=== PATIENT | female | born 1980 | race Caucasian/White ===

== ENCOUNTER 2024-07-04 11:18 | Outpatient (AMB) | payer OTHER, SELFPAY ==
[2024-07-04 11:25] VITALS: BP 185/95; PULSE 80; RESP 16; O2SAT 97
--- NOTE | 2024-07-04 11:25 | A.OFFVIS_ITS ---
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 She also reports severe pain in the left hip the projection of the left iliac crest. She reports that standing and walking aggravate her pain the most. Flexing forward aggravates her pain more than flexing backwards. Bending twisting and side flexing aggravates her pain as well. She can not sleep normally because of her pain she can not do activities of daily living, she can take care of herself and her daughter she is a single mother, she can not function normally. She is on permanent disability for migraine and lower back pain. She reports that she had no migraine attacks for 6 months. Cold and weather changes aggravate her pain and heat applications make her pain better. In terms of tissue damage he reports her pain as stabbing, lancinating, sharp, cutting, lacerating, pinching, cramping, crushing, tingling, stinging, punishing, killing, spreading, radiating, piercing, tight, squeezing, tearing sensation. She attempted physical therapy and reported so severe pain on physical therapy that she could not continue physical therapy. She had MRI at [facility] of the lumbar spine and this is not available for me. She never had any injections. Her past medical history significant for history of gout and history of kidney stones she is suffering from hypertension in the past she had headaches. Past surgical history significant for history of history of hernia repair bilateral as a child, history of D and C and history of at 14 and 16 years old. She denies drinking alcohol, admits smoking 1/2 a pack of cigarettes for 20 years she drinks caffeinated beverages and she denies recreational drugs Review of Systems Const All systems reviewed & are unremarkable except as noted in HPI and below ENT Reports Normal hearing present Neuro Reports Normal hearing present, Denies Abnormal speech present, Denies confusion and Denies Sensory deficit (Neuro) Psych Denies confusion Physical Exam Vital Signs: Last Vital Signs Pulse 80 07/04/24 11:25 Resp 16 07/04/24 11:25 BP 185/95 H 07/04/24 11:25 Pulse Ox 97 07/04/24 11:25 Oxygen Delivery Method Room Air 07/04/24 11:25 Const General: no acute distress; No confusion Nutritional Appearance: obese morbidly obese Orientation/consciousness: patient oriented x3 and No confusion Eyes General: appearance normal, both eyes and all related structures Pupils: Equal, round and reactive pupils present EOM: EOMs intact bilaterally Neck Neck: Yes full ROM Chest Chest palpation & inspection: normal inspection of the chest Resp Effort & Inspection: normal respiratory effort, able to speak in complete sentences, normal respiratory pattern, no audible wheezes and no cough Cardio Jugular venous distension: no JVD GI Inspection: Yes normal to inspection Back/Spine/Pelvis Other: Rajinder test is positive on the left performance of the Rajinder test on the right causes some pain on the left as well. Very difficult to perform pelvic compression test due to severe tenderness on palpation in projection of the 3 cm below the iliac crest where the patient has a nodule under the skin which is mobile. I took patient under the ultrasound machine and examined the nodule it appears to be approximately 3 by 1 cm formation. Tenderness on palpation in projection of the paraspinal spinal region lumbar spine. Flexing forward aggravates pain more than flexing backwards. Neuro General: patient oriented x3, gait normal and No confusion Cranial nerves: Yes CN's II-XII intact bilaterally, Yes Equal, round and reactive pupils present, Yes Normal hearing present and Yes Ability to bilaterally elevate shoulders present Speech: No Abnormal speech present Gait exam (Neuro): Normal gait present Motor exam (neuro): 5/5 motor strength present throughout Sensory Exam: No Sensory deficit (Neuro) Extrem General: No pedal edema Psych Speech and movement: Normal speech and movement present Affect: normal affect Attitude: cooperative Thought process: Normal thought process present Thought content: Normal thought content present Insight: Good insight present (Psych) Judgement: Good judgement present (Psych) Assessment & Plan Assessment & Plan (1) Neuroma: Code(s): D36.10 - Benign neoplasm of peripheral nerves and autonomic nervous system, unspecified Category: Medical (2) Sacroiliitis: Code(s): M46.1 - Sacroiliitis, not elsewhere classified Category: Medical (3) Chronic left SI joint pain: Code(s): M53.3 - Sacrococcygeal disorders, not elsewhere classified; G89.29 - Other chron ic pain Category: Medical (4) Chronic pain syndrome: Code(s): G89.4 - Chronic pain syndrome Category: Medical Plan We agreed today that I will schedule her for diagnostic left sacroiliac joint injection to possibly verify my suspicion that her lower back pain is coming from the sacroiliac joint. I also would like to discuss this case with 1 of my surgical colleagues and request them if possible to perform excisional biopsy of the the subcutaneous neuroma. Whether or not it will alleviate pain of the patient in the projection of the iliac crest I can not say but at least a biopsy could be performed. If diagnostic left sacroiliac joint injection will be helpful to control the pain of this patient is several approaches to treat this pain could be performed including sacroiliac joint steroid injections, sacroiliac joint innervation stimulation, as well as sacroiliac joint stabilization with fusion. To improve the pain of this patient, to improve her night's sleep I will start her on tizanidine 2 mg t.i.d. the regimen was explained to the patient as well as risks and benefits of the medication. Medications: New tizanidine 2 mg PO TID 30 days PRN 90 tabs 8RF muscle spasticity Patient Instructions: I here by testify that I spent 45 minutes in conversation with this patient as well as planning her care and organizing this note. Coding Level of Care Code New Pt Level 4 (06920) Diagnoses Neuroma D36.10 Sacroiliitis M46.1 Chronic left SI joint pain M53.3; G89.29 Chronic pain syndrome G89.4
== END 2024-07-04 12:10 | disposition home or self-care (01) ==
LOC: HO.PMC 11:19
PROVIDERS: PCP Nurse Practitioner Family; Visit Provider Anesthesiology
DX: D36.10 Benign neoplasm of peripheral nerves and autonomic nervous system, unspecified (principal); M46.1 Sacroiliitis, not elsewhere classified; M53.3 Sacrococcygeal disorders, not elsewhere classified; G89.29 Other chronic pain; G89.4 Chronic pain syndrome
CPT/HCPCS: 99204

== ENCOUNTER → 2024-07-04 11:18 | Outpatient (BNVA) | payer OTHER, SELFPAY | PROVIDERS: PCP Nurse Practitioner Family; Visit Provider Anesthesiology | DX: D36.10 Benign neoplasm of peripheral nerves and autonomic nervous system, unspecified (principal); M46.1 Sacroiliitis, not elsewhere classified; M53.3 Sacrococcygeal disorders, not elsewhere classified; G89.29 Other chronic pain | CPT/HCPCS: 99202 ==

== ENCOUNTER 2024-12-26 14:16 | Outpatient (AMB) | payer OTHER, SELFPAY ==
[2024-12-26 14:32] VITALS: BP 179/97; PULSE 100; RESP 20; O2SAT 100
--- NOTE | 2024-12-26 14:32 | MHC.OFFVIS ---
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 Unfortunately something slept through the cracks and the patient was not scheduled for diagnostic sacroiliac joint injection. She also was not referred to a surgeon as I was promised her to do perform excisional biopsy of the presumable Nevroma. I will do it today. Prior: severe pain in her back with radiation of the pain into bilateral lower extremities on the posterior surface of the both lower extremities to the level of mid lower legs and not below that level. She also reports severe pain in the left hip the projection of the left iliac crest. She reports that standing and walking aggravate her pain the most. Flexing forward aggravates her pain more than flexing backwards. Bending twisting and side flexing aggravates her pain as well. She attempted physical therapy and reported so severe pain on physical therapy that she could not continue physical therapy. She is trying to stay active she performs exercises home. She had MRI at [facility] of the lumbar spine and this is not available for me. She never had any injections. Her past medical history significant for history of gout and history of kidney stones she is suffering from hypertension in the past she had headaches. Past surgical history significant for history of history of hernia repair bilateral as a child, history of D and C and history of at 14 and 16 years old. She denies drinking alcohol, admits smoking 1/2 a pack of cigarettes for 20 years she drinks caffeinated beverages and she denies recreational drugs Review of Systems Const All systems reviewed & are unremarkable except as noted in HPI and below ENT Reports Normal hearing present Neuro Reports Normal hearing present, Denies Abnormal speech present, Denies confusion and Denies Sensory deficit (Neuro) Psych Denies confusion Physical Exam Vital Signs: Last Vital Signs Pulse 100 12/26/24 14:32 Resp 20 12/26/24 14:32 BP 179/97 H 12/26/24 14:32 Pulse Ox 100 12/26/24 14:32 Oxygen Delivery Method Room Air 12/26/24 14:32 Const General: no acute distress; No confusion Nutritional Appearance: obese morbidly obese Orientation/consciousness: patient oriented x3 and No confusion Eyes General: appearance normal, both eyes and all related structures Pupils: Equal, round and reactive pupils present EOM: EOMs intact bilaterally Neck Neck: Yes full ROM Chest Chest palpation & inspection: normal inspection of the chest Resp Effort & Inspection: normal respiratory effort, able to speak in complete sentences, normal respiratory pattern, no audible wheezes and no cough Cardio Jugular venous distension: no JVD GI Inspection: Yes normal to inspection Back/Spine/Pelvis Other: Rajinder test is positive on the left performance of the Rajinder test on the right causes some pain on the left as well. Very difficult to perform pelvic compression test due to severe tenderness on palpation in projection of the 3 cm below the iliac crest where the patient has a nodule under the skin which is mobile. I took patient under the ultrasound machine and examined the nodule it appears to be approximately 3 by 1 cm formation. Tenderness on palpation in projection of the paraspinal spinal region lumbar spine. Flexing forward aggravates pain more than flexing backwards. Neuro General: patient oriented x3, gait normal and No confusion Cranial nerves: Yes CN's II-XII intact bilaterally, Yes Equal, round and reactive pupils present, Yes Normal hearing present and Yes Ability to bilaterally elevate shoulders present Speech: No Abnormal speech present Gait exam (Neuro): Normal gait present Motor exam (neuro): 5/5 motor strength present throughout Sensory Exam: No Sensory deficit (Neuro) Extrem General: No pedal edema Psych Speech and movement: Normal speech and movement present Affect: normal affect Attitude: cooperative Thought process: Normal thought process present Thought content: Normal thought content present Insight: Good insight present (Psych) Judgement: Good judgement present (Psych) Assessment & Plan Assessment & Plan (1) Neuroma: Code(s): D36.10 - Benign neoplasm of peripheral nerves and autonomic nervous system, unspecified Category: Medical (2) Sacroiliitis: Code(s): M46.1 - Sacroiliitis, not elsewhere classified Category: Medical (3) Chronic left SI joint pain: Code(s): M53.3 - Sacrococcygeal disorders, not elsewhere classified; G89.29 - Other chronic pain Category: Medical (4) Chronic pain syndrome: Code(s): G89.4 - Chronic pain syndrome Category: Medical Plan I will increase her tizanidine to 4 mg t.i.d.. I will refer her to a surgical office of [facility] with the complains on painful nodule under the skin. I will schedule her for diagnostic sacroiliac joint injection on the left as soon as possible. Orders: Referrals General Surgery Referral D36.10 - Benign neoplasm of peripheral nerves and autonomic nervous system, unspecified Medications: New tizanidine 4 mg PO TID PRN 90 caps 8RF muscle spasticity 30 days Coding Level of Care Code Est Pt Level 3 (38020) Diagnoses Neuroma D36.10 Sacroiliitis M46.1 Chronic left SI joint pain M53.3; G89.29 Chronic pain syndrome G89.4
== END 2024-12-26 14:48 | disposition home or self-care (01) ==
LOC: HO.PMC 14:16
PROVIDERS: PCP Nurse Practitioner Family; Visit Provider Anesthesiology
DX: D36.10 Benign neoplasm of peripheral nerves and autonomic nervous system, unspecified (principal); M46.1 Sacroiliitis, not elsewhere classified; M53.3 Sacrococcygeal disorders, not elsewhere classified; G89.4 Chronic pain syndrome
CPT/HCPCS: 99213

== ENCOUNTER → 2024-12-26 14:16 | Outpatient (BNVA) | payer OTHER, SELFPAY | PROVIDERS: PCP Nurse Practitioner Family; Visit Provider Anesthesiology | DX: G89.4 Chronic pain syndrome (principal); M53.3 Sacrococcygeal disorders, not elsewhere classified; D36.10 Benign neoplasm of peripheral nerves and autonomic nervous system, unspecified; M46.1 Sacroiliitis, not elsewhere classified | CPT/HCPCS: 99212 ==

== ENCOUNTER 2025-01-15 06:14 | Outpatient (REF) | payer OTHER, SELFPAY ==
--- NOTE | ~2025-01-15 | FL_ITS ---
EXAMINATION: FL GUIDANCE ONLY HISTORY: M46.1 - Sacroiliitis, not elsewhere classified COMPARISON: None available. TECHNIQUE: Fluoroscopy time: 12 seconds. Cumulative Dose: 3.8 mGy. DAP: 105.69 uGym2 Images: 2. FINDINGS: Fluoroscopic spot films of the left hemipelvis demonstrate a needle and contrast material in the region of the sacroiliac joint. FL/FL guidance in treatment room IMPRESSION: Fluoroscopy during procedure. Please see procedure report for additional information. Electronically signed by: Jayson Piper MD 01/17/2025 07:24 AM EDT
== END 2025-01-15 06:15 | disposition home or self-care (01) ==
LOC: CF 06:14
PROVIDERS: Visit Provider Anesthesiology
DX: M46.1 Sacroiliitis, not elsewhere classified (principal); G89.29 Other chronic pain
CPT/HCPCS: 27096; J2003; J2795; Q9967

== ENCOUNTER 2025-01-15 12:19 | Outpatient (AMB) | payer OTHER, SELFPAY ==
[2025-01-15 12:54] VITALS: BP 164/83; PULSE 57; RESP 20; O2SAT 96; BMI 32.5
--- NOTE | 2025-01-15 12:54 | A.OFFVIS_ITS ---
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 Informed consent was explained thoroughly to the patient.? All questions about benefits and risks for the procedure were answered. Patient came to the operating room and was positioned prone on the operating table with the pillow under the abdomen.? The lower back and buttocks of the patient were prepped with ChloraPrep prepped and draped with sterile utility towels.? Sterilely draped C-arm was brought over the operating field and sq picture of patient's pelvis was demonstrated on the screen.? For the left joint tilting C-arm contralateral to the site of the joint the most posterior portion of the joints was superimposed with anterior silhouette of the joint.? Skin was injected in the projection of the joint slightly medial to the location of the joint with 25 gauge 1/2 inch needle using local lidocaine 2% mixed with ropivacaine 0.5% one to one. After that 22 gauge 3 and 1/2 inch needle was driven to the left joint in tunnel vision fashion.? When needle entered the joint capsule injection of the contrast was performed demonstrating intra-articular and minimally periarticular spread of the contrast.? After that 5 cc. of ropivacaine 0.5% was injected into each joint. Upon completion of the injections the needles were removed, Band- Aids were applied.? Upon completion of the injection patient was taken outside of the operating room to the recovery room where recovered uneventfully. Orders: Orders FL guidance in treatment room Today M46.1 - Sacroiliitis, not elsewhere classified Coding Level of Care Code Procedure Only Diagnoses Sacroiliitis M46.1 Chronic left SI joint pain M53.3; G89.29
== END 2025-01-15 13:16 | disposition home or self-care (01) ==
LOC: HO.PMCPRC 12:19
PROVIDERS: PCP Nurse Practitioner Family; Visit Provider Anesthesiology
DX: M46.1 Sacroiliitis, not elsewhere classified (principal); M53.3 Sacrococcygeal disorders, not elsewhere classified; G89.29 Other chronic pain
CPT/HCPCS: 27096

== ENCOUNTER 2025-01-23 09:57 | Outpatient (AMB) | payer OTHER, SELFPAY ==
[2025-01-23 10:09] VITALS: BP 152/96; PULSE 76; RESP 18; O2SAT 98
--- NOTE | 2025-01-23 10:09 | MHC.OFFVIS ---
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 She also complains on pain in the lower back with radiation of the pain into the the left lower extremity. She went for diagnostic left-sided sacroiliac joint injection, on physical exam there were some signs of sacroiliitis. Today patient stated that her pain was not at all affected by the injection. She requests me to send her for the MRI of the lumbar spine. I will send her for the MRI. She requests me to prescribe her Ativan because she is claustrophobic and can not tolerate MRI without Ativan medication. I will prescribe her 2 tablets of Ativan 1 mg 130 minutes before the procedure and 1 1 hour before the procedure. She also requests me to prescribe her baclofen, she states that the [facility] pharmacy in [place] requested her 30 dollars co-pay for the medication. She requested me to send it to facility at [facility] in [place] I will do as she requests. Prior: severe pain in her back with radiation of the pain into bilateral lower extremities on the posterior surface of the both lower extremities to the level of mid lower legs and not below that level. She also reports severe pain in the left hip the projection of the left iliac crest. She reports that standing and walking aggravate her pain the most. Flexing forward aggravates her pain more than flexing backwards. Bending twisting and side flexing aggravates her pain as well. She attempted physical therapy and reported so severe pain on physical therapy that she could not continue physical therapy. She is trying to stay active she performs exercises home. She had MRI at [facility] of the lumbar spine and this is not available for me. She never had any injections. Her past medical history significant for history of gout and history of kidney stones she is suffering from hypertension in the past she had headaches. Past surgical history significant for history of history of hernia repair bilateral as a child, history of D and C and history of at 14 and 16 years old. She denies drinking alcohol, admits smoking 1/2 a pack of cigarettes for 20 years she drinks caffeinated beverages and she denies recreational drugs Review of Systems Const All systems reviewed & are unremarkable except as noted in HPI and below ENT Reports Normal hearing present Neuro Reports Normal hearing present, Denies Abnormal speech present, Denies confusion and Denies Sensory deficit (Neuro) Psych Denies confusion Physical Exam Vital Signs: Last Vital Signs Pulse 76 01/23/25 10:09 Resp 18 01/23/25 10:09 BP 152/96 H 01/23/25 10:09 Pulse Ox 98 01/23/25 10:09 Oxygen Delivery Method Room Air 01/23/25 10:09 Const General: no acute distress; No confusion Nutritional Appearance: obese morbidly obese Orientation/consciousness: patient oriented x3 and No confusion Eyes General: appearance normal, both eyes and all related structures Pupils: Equal, round and reactive pupils present EOM: EOMs intact bilaterally Neck Neck: Yes full ROM Chest Chest palpation & inspection: normal inspection of the chest Resp Effort & Inspection: normal respiratory effort, able to speak in complete sentences, normal respiratory pattern, no audible wheezes and no cough Cardio Jugular venous distension: no JVD GI Inspection: Yes normal to inspection Back/Spine/Pelvis Other: Rajinder test is positive on the left performance of the Rajinder test on the right causes some pain on the left as well. Very difficult to perform pelvic compression test due to severe tenderness on palpation in projection of the 3 cm below the iliac crest where the patient has a nodule under the skin which is mobile. I took patient under the ultrasound machine and examined the nodule it appears to be approximately 3 by 1 cm formation. Tenderness on palpation in projection of the paraspinal spinal region lumbar spine. Flexing forward aggravates pain more than flexing backwards. Neuro General: patient oriented x3, gait normal and No confusion Cranial nerves: Yes CN's II-XII intact bilaterally, Yes Equal, round and reactive pupils present, Yes Normal hearing present and Yes Ability to bilaterally elevate shoulders present Speech: No Abnormal speech present Gait exam (Neuro): Normal gait present Motor exam (neuro): 5/5 motor strength present throughout Sensory Exam: No Sensory deficit (Neuro) Extrem General: No pedal edema Psych Speech and movement: Normal speech and movement present Affect: normal affect Attitude: cooperative Thought process: Normal thought process present Thought content: Normal thought content present Insight: Good insight present (Psych) Judgement: Good judgement present (Psych) Assessment & Plan Assessment & Plan (1) Disc degeneration, lumbar: Code(s): M51.369 - Other intervertebral disc degeneration, lumbar region without mention of lumbar back pain or lower extremity pain Category: Medical (2) Spondylosis of lumbar region without myelopathy or radiculopathy: Code(s): M47.816 - Spondylosis without myelopathy or radiculopathy, lumbar region Category: Medical (3) Neuroma: Code(s): D36.10 - Benign neoplasm of peripheral nerves and autonomic nervous system, unspecified Category: Medical (4) Sacroiliitis: Code(s): M46.1 - Sacroiliitis, not elsewhere classified Category: Medical (5) Chronic left SI joint pain: Code(s): M53.3 - Sacrococcygeal disorders, not elsewhere classified; G89.29 - Other chronic pain Category: Medical (6) Chronic pain syndrome: Code(s): G89.4 - Chronic pain syndrome Category: Medical Plan Diagnostic Sacroiliac joint injections are negative for sacroiliac joint pain as a pain generators for this patient. Will send her for MRI of the lumbar spine to assess possibility of pain generators in the lumbar spine. I will prescribe her 2 pills of Ativan she is claustrophobic and can not tolerate the procedure not sedated. I recommended her to give me a call the very moment her MRI will be done. She will schedule appointment with me and we will discuss the results. I will send her baclofen to [facility] in [place] pharmacy. The patient requested this facility in hope to not to pay 30 dollars co-pay for this medication. Orders: Orders MR lumbar spine wo con Today M47.816 - Spondylosis without myelopathy or radiculopathy, lumbar region, M51.369 - Other intervertebral disc degeneration, lumbar region without mention of lumbar back pain or lower extremity pain Medications: New lorazepam (Ativan) Take 1 pill 2 hours before the procedure and 2nd pill 15 minutes before the procedure of the MRI 1 mg PO DAILY PRN 2 tabs 0RF anxiety 1 day Refilled baclofen 10 mg PO TID 90 tabs 8RF 30 days Discontinued tizanidine Discontinued Reason: Doctor's Order 4 mg PO TID 30 days PRN 90 caps 8RF muscle spasticity Coding Level of Care Code Est Pt Level 3 (88093) Diagnoses Disc degeneration, lumbar M51.369 Spondylosis of lumbar region without myelopathy or radiculopathy M47.816 Neuroma D36.10 Sacroiliitis M46.1 Chronic left SI joint pain M53.3; G89.29 Chronic pain syndrome G89.4
== END 2025-01-23 10:56 | disposition home or self-care (01) ==
LOC: HO.PMC 09:58
PROVIDERS: PCP Nurse Practitioner Family; Visit Provider Anesthesiology
DX: M51.369 Other intervertebral disc degeneration, lumbar region without mention of lumbar back pain or lower extremity pain (principal); M47.816 Spondylosis without myelopathy or radiculopathy, lumbar region; D36.10 Benign neoplasm of peripheral nerves and autonomic nervous system, unspecified; M46.1 Sacroiliitis, not elsewhere classified; M53.3 Sacrococcygeal disorders, not elsewhere classified; G89.29 Other chronic pain; G89.4 Chronic pain syndrome
CPT/HCPCS: 99214

== ENCOUNTER → 2025-01-23 09:57 | Outpatient (BNVA) | payer OTHER, SELFPAY | PROVIDERS: PCP Nurse Practitioner Family; Visit Provider Anesthesiology | DX: M51.369 Other intervertebral disc degeneration, lumbar region without mention of lumbar back pain or lower extremity pain (principal); M47.816 Spondylosis without myelopathy or radiculopathy, lumbar region; M46.1 Sacroiliitis, not elsewhere classified; M53.3 Sacrococcygeal disorders, not elsewhere classified; G89.4 Chronic pain syndrome; D36.10 Benign neoplasm of peripheral nerves and autonomic nervous system, unspecified | CPT/HCPCS: 99212 ==

== ENCOUNTER 2025-01-29 14:59 | Outpatient (AMB) | payer OTHER, SELFPAY ==
--- NOTE | 2025-01-29 15:11 | A.OFFVIS_ITS ---
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 Pt c/o: lump on the right side of the lower back, onset 2 yrs, painful at all times, worse with prolonged standing or certain activities, had imaging by Dr Newton Sales And Marketing Representative Required: No Accompanied by: Sister Allergies latex Allergy (Mild, Verified 01/29/25 15:25) Itching povidone-iodine (From Betadine) Allergy (Mild, Verified 01/29/25 15:26) Blister Medication List - Last Reconciled 01/30/25 by Gene Solitario MD acetaminophen ER 650 mg PO Q8H albuterol sulfate 90 mcg/actuation 2 puffs inhalation Q6H PRN baclofen 10 mg PO TID 30 days budesonide-formoterol 80-4.5 mcg/actuation 2 puffs inhalation BID fluticasone propionate 50 mcg/actuation (Allergy Relief (fluticasone)) 2 sprays intranasal DAILY lidocaine 5% 2 patches topical DAILY lorazepam (Ativan) 1 mg PO DAILY PRN 1 day valsartan 160 mg PO DAILY HPI Comments Details: 44-year-old female patient presenting with complaints of low back pain in the left side with a palpable mass. This has pain has persisted in his localized to the left lower back/hip. She denies any redness or discharge from the site. She denies a history of trauma. She has undergone several attempts at pain management without success. She reports a previous imaging of this area in his noted to have an adrenal mass. She is requesting excision of this painful mass in the left back/hip. [facility] Surgical History Hx of dilation and curettage Hx of tonsillectomy Hx of section Hx of bilateral inguinal hernia repair Female Reproductive History Menstrual Ab induced: 1 Review of Systems Const All systems reviewed & are unremarkable except as noted in HPI and below Physical Exam Vital Signs: Last Vital Signs Pulse 69 01/29/25 15:32 BP 191/87 H 01/29/25 15:32 BMI result Body Mass Index 34.8 Const General: no acute distress and anxious Nutritional Appearance: overweight Orientation/consciousness: patient oriented x3 Resp Effort & Inspection: normal respiratory effort, no audible wheezes, no cough and no respiratory distress GI Inspection: Yes normal to inspection Palpation (GI): Soft to palpation, nontender and no guarding Back/Spine/Pelvis Other: Palpable mass approximately 5 cm in diameter, exquisitely tender to palpation located in the left lower back.. No overlying skin changes are appreciated. No similar lesion noted on the left side. Back/spine/pelvis image: 2 1. Site of painful palpable mass, 5 cm diameter. Difficult to examine due to exquisite pain. Neuro General: patient oriented x3 Extrem General: Yes no clubbing, cyanosis or edema Assessment & Plan Assessment & Plan (1) Neuroma: Comment: Left lower back Code(s): D36.10 - Benign neoplasm of peripheral nerves and autonomic nervous system, unspecified Category: Medical Plan 44-year-old female patient presenting with complaints of pain in the left lower back found to have a palpable mass measuring approximately 5 cm in diameter which is the site of tenderness. Finding is suggestive of a neuroma given the extreme pain associated with this lesion. Patient has requested excision of this site and after discussion of the procedure, risks and alternatives, she consents to the surgery. This will be scheduled as a short-stay surgery under general anesthesia. Coding Level of Care Code New Pt Level 4 (88482) Diagnoses Neuroma D36.10
[2025-01-29 15:32] VITALS: BP 191/87; PULSE 69; BMI 34.8
== END 2025-01-29 15:49 | disposition home or self-care (01) ==
LOC: HO.HGS 15:00
PROVIDERS: PCP Nurse Practitioner Family; Visit Provider Surgery
DX: D36.10 Benign neoplasm of peripheral nerves and autonomic nervous system, unspecified (principal)
CPT/HCPCS: 99204

== ENCOUNTER → 2025-01-29 14:59 | Outpatient (BNVA) | payer OTHER, SELFPAY | PROVIDERS: PCP Nurse Practitioner Family; Visit Provider Surgery | DX: D36.10 Benign neoplasm of peripheral nerves and autonomic nervous system, unspecified (principal) | CPT/HCPCS: 99202 ==

== ENCOUNTER 2025-02-06 05:49 | Day surgery (SDC) | payer OTHER, SELFPAY ==
--- NOTE | 2025-02-01 11:41 | HO.ANESPROP2 ---
Documented by User: Emily Dorsey NP 02/01/25 11:45 HPI - Anesthesia Eval Consult details Narrative: 44yo F for Left Excision Mass on Posterior Hip PMFSH Active Problems Active Problems: All Active Problems Spondylosis of lumbar region without myelopathy or radiculopathy (Acute) Disc degeneration, lumbar (Acute) Chronic pain syndrome (Acute) Chronic left SI joint pain (Acute) Sacroiliitis (Acute) Neuroma (Acute) Past Medical History Medical History (Updated 02/06/25 @ 06:08 by Shaye Park RN) Pneumonia HTN (hypertension) GERD (gastroesophageal reflux disease) Surgical History Surgical History Hx of dilation and curettage Hx of tonsillectomy Hx of section Hx of bilateral inguinal hernia repair Social History Social History Comment: Counts correct Patient Tobacco Use Status: Current everyday Tobacco user Are you DNR?: No Advance Directives: No Advance Directives Information Provided: Yes Meds Allergies Allergy/AdvReac Type Severity Reaction Status Date / Time latex Allergy Mild Itching Verified 01/29/25 15:25 povidone-iodine (From Allergy Mild Blister Verified 01/29/25 15:26 Betadine) Home Medications ?Medication ?Instructions ?Recorded ?Confirmed ?Last Taken ?Type lidocaine 5 % topical patch 2 patch topical DAILY 07/04/24 02/06/25 Unknown History valsartan 160 mg tablet 160 mg PO DAILY 07/04/24 02/06/25 02/05/25 History Exam Narrative Narrative: PFT 08/2024 INTERPRETATION: Spirometry is normal. No significant response to bronchodilator. TLC is normal. The carbon monoxide diffusing capacity is normal. Assessment and Plan Assessment Anesthesia Assessment: Chart Reviewed Documented by User: Amrita Qureshi MD 02/06/25 08:05 PMFSH Past Medical History Medical History (Updated 02/06/25 @ 06:08 by Shaye Park RN) Pneumonia HTN (hypertension) GERD (gastroesophageal reflux disease) Family History Family history of problems with anesthesia: No Surgical History Surgical History Hx of dilation and curettage Hx of tonsillectomy Hx of section Hx of bilateral inguinal hernia repair History of Problems with Anesthesia: No Social History Social History Comment: Counts correct Patient Tobacco Use Status: Current everyday Tobacco user Are you DNR?: No Advance Directives: No Advance Directives Information Provided: Yes Meds Allergies Allergy/AdvReac Type Severity Reaction Status Date / Time latex Allergy Mild Itching Verified 01/29/25 15:25 povidone-iodine (From Allergy Mild Blister Verified 01/29/25 15:26 Betadine) Home Medications ?Medication ?Instructions ?Recorded ?Confirmed ?Last Taken ?Type lidocaine 5 % topical patch 2 patch topical DAILY 07/04/24 02/06/25 Unknown History valsartan 160 mg tablet 160 mg PO DAILY 07/04/24 02/06/25 02/05/25 History Exam Airway Mallampati Class: II TM Dist: >3cm Heart: rrr Lungs: cta Assessment and Plan Assessment Anesthesia Assessment: Anesthesia Plan Discussed Final Anesthetic Review Family History of Problems with Anesthesia: No History of Problems with Anesthesia: No NPO: Yes ASA Class: II Final Preanesthetic Review: No Changes in Pt Med Stat, Meds/Allgs Chart Reviewed and Consent Obtained/Reviewed Patient Risk: Low Procedure Risk: Low Anesthetic Plan Anesthetic Plan: GA, MAC: and Agree w/ Assess. and Plan Disposition: Standard PACU
[2025-02-06 05:21] VITALS: BMI 34.9
[2025-02-06 05:54] VITALS: BP 151/95; PULSE 76; RESP 18; TEMP 36.4; O2SAT 96; BMI 34.1
[2025-02-06 06:09] LABS: UPreg QC Valid YES
[2025-02-06] MEDS: Lactated Ringers 1,000 ML 100 ML IVCONT (06:17)
[2025-02-06] MEDS: Albuterol Sulfate (0.083%) 2.5 MG/3 ML VIAL.NEB INHALE (06:20)
--- NOTE | 2025-02-06 07:20 | MHC.SHP ---
Pre-Procedural Eval Section A - 24 Hr Update-Section A only Date of Service: 02/06/25 The patient is an INPATIENT: No Changes since office visit: Yes Patient answered all questions; No Cold of Flu in the past 2 weeks, No New Medical Problems and No Changes in Medication The patient has been examined within 24 hours of the surgical procedure. 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 No changes have occurred unless specified. Time Spent With Patient Time: Total time managing care of this patient today ____ minutes.
--- NOTE | 2025-02-06 08:05 | P.OP_ITS ---
Operative Note Operative Note Date of Service: 02/06/25 Narrative: Preoperative diagnosis: Mass left posterior hip Postoperative diagnosis: Same Procedure: Excision of mass posterior left hip Surgeon: Gene Solitario MD Procurement Director: Yadira Greene PA-C; KORIN Cazares Anesthesia: General LMA Indications for procedure: 44-year-old female patient presenting with complaints of a painful lump located in the left posterior hip. On examination the patient does have a soft tissue mass suggestive of a lipoma on the left posterior hip which is exquisitely tender to palpation. Operative findings: Large lipoma measuring approximately 4 cm in diameter Specimen: Lipoma left posterior hip Estimated blood loss: 2 mL Complications: None Procedure details: Patient was brought to the OR and placed in a supine position. After administering general anesthesia the patient was rotated to a right lateral decubitus position. The patient's left posterior hip was prepped with ChloraPrep and draped in a sterile fashion. A surgical time-out was called the consent confirmed. Patient received preoperative antibiotics and Venodyne boots were in place. Local anesthesia consisting of 0.5% Sensorcaine was infiltrated around the palpable lump in the left posterior hip. A transverse incision was then made with a scalpel and carried out through subcutaneous tissue up to the lipoma. Lipoma was then dissected using electrocautery dissection and sharp dissection and was removed completely. This was passed off the table and sent to pathology for further examination. Deep subcutaneous tissue was then reapproximated using interrupted 3-0 Polysorb sutures. Dermis was reapproximated using interrupted 3-0 Polysorb sutures. Approximately 4 mL of Zenrelef was instilled in the subcutaneous pocket. Skin was then closed using a running subcuticular 4-0 Polysorb suture. Steri-Strips, 4 x 4 gauze and Tegaderm were then applied. The patient tolerated the procedure well. Sponge, instrument, and needle counts reported as correct. The patient was transferred to PACU in stable condition.
[2025-02-06 08:20] VITALS: BP 141/70; PULSE 57; RESP 18; TEMP 36.6; O2SAT 100
[2025-02-06 08:25] VITALS: BP 142/75; PULSE 65; RESP 16; O2SAT 99
[2025-02-06 08:30] VITALS: BP 143/78; PULSE 69; RESP 16; O2SAT 99
[2025-02-06 08:35] VITALS: BP 143/76; PULSE 70; RESP 16; O2SAT 99
[2025-02-06 08:50] VITALS: BP 147/97; PULSE 82; RESP 18; TEMP 36.7; O2SAT 95
== END 2025-02-06 09:49 | disposition home or self-care (01) ==
PROVIDERS: Nurse Practitioner; PCP Nurse Practitioner Family; Visit Provider Surgery
PROC: (CPT 27043; principal; 2025-02-06 07:30)
DX: D17.1 Benign lipomatous neoplasm of skin and subcutaneous tissue of trunk (principal); M54.50 Low back pain, unspecified; I10 Essential (primary) hypertension; Z79.899 Other long term (current) drug therapy; Z91.040 Latex allergy status; Z91.041 Radiographic dye allergy status; Z79.51 Long term (current) use of inhaled steroids; Z98.890 Other specified postprocedural states
CPT/HCPCS: 27043; 81025; 88304; J0668; J0690; J1100; J2003; J2250; J2371; J2405; J2704; J3010

== ENCOUNTER → 2025-02-06 05:49 | Outpatient (BNV) | payer OTHER, SELFPAY | PROVIDERS: PCP Nurse Practitioner Family; Visit Provider Surgery | DX: D17.1 Benign lipomatous neoplasm of skin and subcutaneous tissue of trunk (principal) | CPT/HCPCS: 11404 ==

== ENCOUNTER 2025-02-13 09:13 | Outpatient (AMB) | payer OTHER, SELFPAY ==
--- NOTE | 2025-02-13 09:19 | A.OFFVIS_ITS ---
Vital Signs 3 02/13/25 09:27 Weight 218 lb BP 154/74 H Blood Pressure Location Rt brachial Position Sitting Pulse 79 Intake Visit Reasons: s/p excision mass lft posterior hip Intake Note: Patient here s/p lipoma excision on left hip. Patient c/o: extreme pain. Ran out of oxycodone 2days ago. Tylenol not helping as much. WLE(EULALIA): 02-06-2025 Medical Or Surgical Instrument Maker Required: No Accompanied by: Self / Same As Patient Allergies latex Allergy (Mild, Verified 02/13/25 09:27) Itching povidone-iodine (From Betadine) Allergy (Mild, Verified 02/13/25 09:27) Blister HPI HPI s/p excision mass lft posterior hip: Details: Patient reports she is in a lot of pain. Was taking oxycodone but has since run out, this pain is not controlled with Tylenol, she has tried for the last few days to try just Tylenol but has been having difficulty sleeping moving around or finding a comfortable position. There was some superficial numbness on the skin and on the lower glute. There are few areas where the bandages have created blisters and when removing the blisters removed the superficial layer of skin. Denies fevers at home. Initially had some small bloody drainage from the incision after the 1st day but has not been noticing this on the dressing changes. She has not put any creams on this area. She has not some warm compresses which have improved her pain slightly. [facility] Medical History (Updated 02/06/25 @ 06:08 by Shaye Park RN) Pneumonia HTN (hypertension) GERD (gastroesophageal reflux disease) Surgical History (Updated 02/13/25 @ 10:11 by Wallace Purcell PA-C) Hx of surgical procedure (02/06/25) Hx of dilation and curettage Hx of tonsillectomy Hx of section Hx of bilateral inguinal hernia repair Social History Comment: Counts correct Patient Tobacco Use Status: Current everyday Tobacco user Review of Systems Const All systems reviewed & are unremarkable except as noted in HPI and below Physical Exam Vital Signs: Last Vital Signs Pulse 79 02/13/25 09:27 BP 154/74 H 02/13/25 09:27 Const General: no acute distress and anxious; No comfortable Orientation/consciousness: patient oriented x3 Resp Effort & Inspection: normal respiratory effort and able to speak in complete sentences Skin Other: Left posterior hip: Incision site intact, there was a large surrounding area of ecchymosis spinning almost the entirety of the left glute. Steri-Strips were in place, I removed these which derived some small blood blisters that drained serosanguineous fluid adjacent to the incision site. The inferior border of the incision site appears pale poorly perfused. There are multiple areas of eschar. There was no palpable fluctuance. This was exquisitely tender to light touch. There was no drainage able to be expressed Neuro General: patient oriented x3 Assessment & Plan Assessment & Plan (1) S/P excision of lipoma: Comment: Left posterior hip, 02/06/2025, Dr. Solitario Code(s): Z98.890 - Other specified postprocedural states; Z86.018 - Personal history of other benign neoplasm Category: Medical Plan 44-year-old female s/p excision of a left posterior hip lipoma returning to the office for follow up. Patient is very anxious and struggling with pain control, she is having much difficulty with ambulating, sitting due to pain at the incision site. She has run out of oxycodone, states this helps her pain, has tried Tylenol since she has run out but this has not been helping her at all, has had difficulty sleeping due to pain. There has been no drainage other than from the 1st day where she had some blood. She does report that the tape and dressings cause some skin breakdown and blistering that opened up when she removed the dressings. She denies fevers at home. Denies any drainage from the site. She is mildly hypertensive in the office today , likely this is due to her pain. On exam the incision site is intact however there was a large area of ecchymosis surrounding the entirety of the left glute, I removed the Steri- Strips which did do remove some small fluid-filled blisters that contains serosanguineous fluid. There also 2 areas of eschar inferior to the incision site. Additionally the inferior wound border appears to have poor perfusion, it is pale white. See above photo in physical exam. It is possible this was a result of a hematoma given the large size of the lipoma creating a cavity where the hematoma could have formed which in turn could have compromise some blood flow to the inferior border. The wound was dressed with Xeroform and attempt to soften some of the eschar however this may ultimately lead to requiring surgical debridement. Would expect that this would need to be done in the OR given the patient's pain. The wound was then covered with gauze and Tegaderm. She is to avoid creams or other topical medications in this area. We will send her a new prescription for oxycodone to help manage her pain at home. She will return on Tuesday for wound check with the nurse Kyle we will change dressings and assessed the wound. Dr. Solitario also be in the office to assess the wound. She is to reach out prior if pain continues to worsen, she develops fevers or has any other concerns. We reviewed pathology showing mature lobulated adipose tissue consistent with lipoma, no atypia. Medications: New 2 oxycodone Partial Fill upon patient request. 5 mg PO Q6H PRN 10 tabs 0RF pain Coding Level of Care Code Est Pt Level 4 (77922) Diagnoses S/P excision of lipoma Z98.890; Z86.018
[2025-02-13 09:27] VITALS: BP 154/74; PULSE 79
== END 2025-02-13 09:50 | disposition home or self-care (01) ==
LOC: HO.HGS 09:14
PROVIDERS: PCP Nurse Practitioner Family
DX: Z98.890 Other specified postprocedural states (principal); Z86.018 Personal history of other benign neoplasm
CPT/HCPCS: 99214

== ENCOUNTER → 2025-02-13 09:13 | Outpatient (BNVA) | payer OTHER, SELFPAY | PROVIDERS: PCP Nurse Practitioner Family | DX: Z86.018 Personal history of other benign neoplasm (principal); Z98.890 Other specified postprocedural states | CPT/HCPCS: 99212 ==

== ENCOUNTER 2025-02-15 09:51 | Outpatient (AMB) | payer OTHER, SELFPAY ==
--- NOTE | 2025-02-15 10:46 | AM.OFFVISNUR ---
Intake Visit Reasons: mass lft posterior hip Allergies latex Allergy (Mild, Verified 02/13/25 09:27) Itching povidone-iodine (From Betadine) Allergy (Mild, Verified 02/13/25 09:27) Blister Nursing Note Pt reports for dressing change of wound left flank. Escar noted under the incision and a dime sized area below that. Discussed with JM, silvadene cream applied to the wounds. Will see next week to see if escar is ready to be debrided off. Skin around the wound is intact - no redness, no purulence, pt endorses pain. She is advised to change dressing daily and will return in a week. Coding Level of Care Code Established Pt Est Pt Level 1 (93352) Patient Type Established History Problem Focused Exam Problem Focused Medical Decision Making Straight Forward Time Spent (min) 15 Comment Dressing change, wound teaching
== END 2025-02-15 10:46 | disposition home or self-care (01) ==
LOC: HO.HGS 09:51
PROVIDERS: PCP Nurse Practitioner Family; Visit Provider Surgery
DX: D17.24 Benign lipomatous neoplasm of skin and subcutaneous tissue of left leg (principal)
CPT/HCPCS: 99024

== ENCOUNTER → 2025-02-15 09:51 | Outpatient (BNVA) | payer OTHER, SELFPAY | PROVIDERS: PCP Nurse Practitioner Family; Visit Provider Surgery | DX: Z48.00 Encounter for change or removal of nonsurgical wound dressing (principal) | CPT/HCPCS: 99212 ==

== ENCOUNTER 2025-02-21 10:33 | Outpatient (AMB) | payer OTHER, SELFPAY ==
--- NOTE | 2025-02-21 10:44 | A.OFFVIS_ITS ---
Vital Signs 3 02/21/25 10:55 Weight 219 lb BP 192/85 H Blood Pressure Location Rt brachial Position Sitting Pulse 64 Intake Visit Reasons: mass lft posterior hip Intake Note: Patient here s/p lipoma excision on left hip. Patient c/o: severe pain. Called the office yesterday looking for rx pain meds but didn't hear back. Patient here w/ sister who is not a nurse but reports hx of wound care. Reports Silvadene is eating away normal tissue. CANDI (CLARENCE): 02-13-2025 Dry Cans Back Tender Required: No Accompanied by: Sister Allergies latex Allergy (Mild, Verified 02/21/25 10:57) Itching povidone-iodine (From Betadine) Allergy (Mild, Verified 02/21/25 10:57) Blister HPI HPI mass lft posterior hip: Details: Yoils Flaherty underwent excision of mass posterior left hip on 02/06/[address] Solitario for a painful, large mass. Path consistent with lipoma. On her first follow up visit, her incision was intact and well approximated but she was found to have small surrounding areas of eschar along with serous filled bulla. She did report some skin breakdown following the removal of her dressing after the procedure. Xeroform was applied to the area followed by dry dressing and gentle tape. She was reevaluated later in the week and silvadene was prescribed to help soften up the eschars. She returns today complaining of burning at the wound sites with the silvadene. Her friend is present during her visit who has been helping her with her wound care and states the silvadene is breaking down the surrounding tissue. She reports continued severe pain and discomfort at the wound site. She denies fevers, chills, nausea, vomiting, drainage from the wound. [facility] Medical History (Updated 02/22/25 @ 08:27 by Yadira Greene PA-C) Pneumonia HTN (hypertension) GERD (gastroesophageal reflux disease) Surgical History (Updated 02/13/25 @ 10:11 by Wallace Purcell PA-C) Hx of surgical procedure (02/06/25) Hx of dilation and curettage Hx of tonsillectomy Hx of section Hx of bilateral inguinal hernia repair Social History Comment: Counts correct Patient Tobacco Use Status: Current everyday Tobacco user Review of Systems Const All systems reviewed & are unremarkable except as noted in HPI and below Physical Exam Vital Signs: Last Vital Signs Pulse 64 02/21/25 10:55 BP 192/85 H 02/21/25 10:55 Const General: alert and anxious; No ill appearing Orientation/consciousness: patient oriented x3 Resp Effort & Inspection: normal respiratory effort and able to speak in complete sentences Skin Other: left lower back/hip- current dressing removed- found to have very thick layer of silvadene on normal, healthy surrounding tissue between eschars that appears to be irritated upon gentle removal with fluff; incision site remains well approximated without opening and dehisence; three eschars are beginning to soften, no other significant erythema or edema, seems to be less tender Neuro General: patient oriented x3, gait normal and moves all extremities Assessment & Plan Assessment & Plan (1) S/P excision of lipoma: Comment: Left posterior hip, 02/06/2025, Dr. Solitario Code(s): Z98.890 - Other specified postprocedural states; Z86.018 - Personal history of other benign neoplasm Category: Surgical (2) Skin eschar: Code(s): R23.4 - Changes in skin texture Category: Medical Plan 44 year old female s/p excision of mass posterior left hip on 02/06/25. She was found to have eschars surrounding her incision and has been applying silvadene to the area unfortunately as well as the intact and normal skin which is likely causing irritation. The wound currently does not appear infected. Overall, the eschars appear superficial and more soft on this visit but would benefit from more enzymatic debridement. Santyl was therefore ordered for her. She was instructed to apply this to only the open areas and not the intact, viable tissue followed by nonadherent dressing and tape. She is to follow up in 1 week for a wound check or sooner if she develops concerns. Patient called office upon leaving as santyl was not covered by her insurance. Continued silvadene use was then recommended however she refuses to use this due to burning. Medihoney prescription there sent to her pharmacy. Medications: New 2 collagenase clostridium histo. (Santyl) to left hip/lower back wound 1 appl topical DAILY 15 grams 0RF oxycodone Partial Fill upon patient request. 5 mg PO Q6H PRN 14 tabs 0RF pain docusate sodium (Colace) 100 mg PO BID PRN 20 caps 0RF constipation Coding Level of Care Code Global (93895) Diagnoses S/P excision of lipoma Z98.890; Z86.018 Skin eschar R23.4
[2025-02-21 10:55] VITALS: BP 192/85; PULSE 64
== END 2025-02-21 11:08 | disposition home or self-care (01) ==
LOC: HO.HGS 10:34
PROVIDERS: PCP Nurse Practitioner Family; Visit Provider Physician Assistant Surgical
DX: Z98.890 Other specified postprocedural states (principal); Z86.018 Personal history of other benign neoplasm; R23.4 Changes in skin texture
CPT/HCPCS: 99024

== ENCOUNTER → 2025-02-21 10:33 | Outpatient (BNVA) | payer OTHER, SELFPAY | PROVIDERS: PCP Nurse Practitioner Family; Visit Provider Physician Assistant Surgical | DX: R23.4 Changes in skin texture (principal); Z98.890 Other specified postprocedural states; Z86.018 Personal history of other benign neoplasm | CPT/HCPCS: 99212 ==

== ENCOUNTER → 2025-02-28 10:05 | Outpatient (BNVA) | payer OTHER, SELFPAY | PROVIDERS: PCP Nurse Practitioner Family; Visit Provider Surgery | DX: Z48.00 Encounter for change or removal of nonsurgical wound dressing (principal) | CPT/HCPCS: 99211 ==

== ENCOUNTER → 2025-03-04 11:08 | Outpatient (BNVA) | payer OTHER, SELFPAY | PROVIDERS: PCP Nurse Practitioner Family; Visit Provider Surgery | DX: Z48.00 Encounter for change or removal of nonsurgical wound dressing (principal) | CPT/HCPCS: 99211 ==

== ENCOUNTER 2025-03-06 09:01 | Day surgery (SDC) | payer OTHER, SELFPAY ==
--- NOTE | 2025-03-05 08:59 | HO.ANESPROP2 ---
Documented by User: Hanna Blackburn NP 03/05/25 09:00 HPI - Anesthesia Eval Consult details Narrative: 44 yr old female for left Wide Excision Skin Lesion on Hip Daily tobacco use PMFSH Active Problems Active Problems: All Active Problems Skin eschar (Acute) S/P excision of lipoma (Acute) Spondylosis of lumbar region without myelopathy or radiculopathy (Acute) Disc degeneration, lumbar (Acute) Chronic pain syndrome (Acute) Chronic left SI joint pain (Acute) Sacroiliitis (Acute) Neuroma (Acute) Past Medical History Medical History Surgery, elective Pneumonia HTN (hypertension) GERD (gastroesophageal reflux disease) Family History Family history of problems with anesthesia: No Surgical History Surgical History Hx of surgical procedure (02/06/25) Hx of dilation and curettage Hx of tonsillectomy Hx of section Hx of bilateral inguinal hernia repair History of Problems with Anesthesia: No Social History Social History Comment: Counts correct Patient Tobacco Use Status: Current everyday Tobacco user Have you been hit, kicked, punched, or otherwise hurt by someone within the past year? If so, by whom?: No Are you DNR?: No Advance Directives: No Advance Directives Information Provided: Yes Patient : No Meds Allergies Allergy/AdvReac Type Severity Reaction Status Date / Time latex Allergy Mild Itching Verified 02/21/25 10:57 povidone-iodine (From Allergy Mild Blister Verified 02/21/25 10:57 Betadine) Home Medications ?Medication ?Instructions ?Recorded ?Confirmed ?Last Taken ?Type valsartan 160 mg tablet 160 mg PO DAILY 07/04/24 03/06/25 03/05/25 History Assessment and Plan Final Anesthetic Review Family History of Problems with Anesthesia: No History of Problems with Anesthesia: No Documented by User: Denisse Singer MD 03/06/25 10:58 PMFSH Past Medical History Medical History Surgery, elective Pneumonia HTN (hypertension) GERD (gastroesophageal reflux disease) Surgical History Surgical History Hx of surgical procedure (02/06/25) Hx of dilation and curettage Hx of tonsillectomy Hx of section Hx of bilateral inguinal hernia repair Social History Social History Comment: Counts correct Patient Tobacco Use Status: Current everyday Tobacco user Have you been hit, kicked, punched, or otherwise hurt by someone within the past year? If so, by whom?: No Are you DNR?: No Advance Directives: No Advance Directives Information Provided: Yes Patient : No Meds Allergies Allergy/AdvReac Type Severity Reaction Status Date / Time latex Allergy Mild Itching Verified 02/21/25 10:57 povidone-iodine (From Allergy Mild Blister Verified 02/21/25 10:57 Betadine) Home Medications ?Medication ?Instructions ?Recorded ?Confirmed ?Last Taken ?Type valsartan 160 mg tablet 160 mg PO DAILY 07/04/24 03/06/25 03/05/25 History Exam Airway Mallampati Class: II (edentulous) TM Dist: >3cm Neck ROM: Full Loose/Missing/Broken Teeth: Yes, Upper and Lower Heart: RRR Lungs: CTA Assessment and Plan Assessment Anesthesia Assessment: Anesthesia Plan Discussed and Chart Reviewed Final Anesthetic Review NPO: Yes ASA Class: II Final Preanesthetic Review: Meds/Allgs Chart Reviewed, Consent Obtained/Reviewed and Anes Risks/Benef Reviewed Patient Risk: Low Procedure Risk: Low Anesthetic Plan Anesthetic Plan: GA Disposition: Standard PACU
[2025-03-06 05:22] VITALS: BMI 32.5
[2025-03-06 09:10] VITALS: BP 156/97; PULSE 70; RESP 20; TEMP 36.4; O2SAT 96; BMI 32.7
[2025-03-06 09:29] LABS: UPreg QC Valid YES
[2025-03-06] MEDS: Lactated Ringers 1,000 ML 100 ML IVCONT (09:31)
--- NOTE | 2025-03-06 11:20 | MHC.SHP ---
Pre-Procedural Eval Section A - 24 Hr Update-Section A only Date of Service: 03/06/25 The patient is an INPATIENT: No Changes since office visit: Yes Patient answered all questions; No Cold of Flu in the past 2 weeks, No New Medical Problems and No Changes in Medication The patient has been examined within 24 hours of the surgical procedure. The History & Physical has been completed within 30 days and I have reviewed it.: Yes Section B - Complete if H&P > 30 days Chief Complaint: Changes in skin texture Allergies: Allergies Allergy/AdvReac Type Severity Reaction Status Date / Time latex Allergy Mild Itching Verified 02/21/25 10:57 povidone-iodine (From Allergy Mild Blister Verified 02/21/25 10:57 Betadine) Plan Diagnosis/Plan: Unchanged I have reviewed the history and physical and performed a pertinent physical examination on my patient. No changes have occurred unless specified. Time Spent With Patient Time: Total time managing care of this patient today ____ minutes.
[2025-03-06 12:35] VITALS: BP 140/83; PULSE 79; RESP 18; TEMP 36.6
[2025-03-06 12:40] VITALS: BP 131/79; PULSE 76; RESP 18; O2SAT 98
[2025-03-06 12:45] VITALS: BP 143/85; PULSE 75; RESP 18; O2SAT 98
[2025-03-06 12:50] VITALS: BP 135/81; PULSE 71; RESP 18; O2SAT 98
[2025-03-06 13:00] VITALS: BP 151/72; PULSE 86; RESP 18; O2SAT 98
--- NOTE | 2025-03-06 13:14 | W.PM.OPN ---
Operative Note Operative Note Date of Service: 03/06/25 Narrative: Preoperative diagnosis: Necrotic skin following lipoma removal left buttock Postoperative diagnosis: Same Procedure: Wide excision of necrotic skin and subcutaneous tissue, left buttock Surgeon: Gene Solitario MD Orthotic/Prosthetic Clinician: Yadira Greene PA-C; Tayla Soni MS-3 Anesthesia: General LMA Indications for procedure: 44-year-old female patient status post excision of a large lipoma of the left buttock presenting with areas of necrotic skin surrounding the previous incision. She presents today for wide debridement and primary closure of the previous incision Operative findings: Wide area of necrotic skin and subcutaneous tissue measuring at least 8 cm in diameter, debrided down to viable tissue Specimen: Necrotic skin left buttock Estimated blood loss: 10 mL Complications: None Procedure details: Patient was brought to the OR and placed in a supine position. After administering general anesthesia she was placed in a right lateral decubitus position. The skin around the previous incision was prepped and draped in a sterile fashion. A surgical time-out was called the consent confirmed. Patient received preoperative antibiotics and Venodyne boots were in place. Local anesthesia was infiltrated around the area of necrotic skin. A 15 blade was then used to excise the necrotic skin. Dissection was continued down into the subcutaneous tissue with areas of necrotic tissue were identified. Approximately 8 cm of necrotic skin and subcutaneous tissue was then excised. Wounds were then irrigated with saline solution and suctioned dry. A 2nd opening in the lower portion of of the incision was also opened and debrided but not closed. This was packed with quarter-inch iodoform gauze. Dermis was reapproximated using interrupted 3-0 Polysorb sutures. Skin was closed using interrupted 3-0 nylon sutures. Sterile dressings were then applied. The patient tolerated the procedure well. Sponge, instrument, and needle counts were reported as correct. She was transferred to PACU in stable condition.
== END 2025-03-06 13:33 | disposition home or self-care (01) ==
PROVIDERS: Nurse Practitioner; PCP Nurse Practitioner Family; Visit Provider Surgery
PROC: (CPT 11042; principal; 2025-03-06 11:40)
DX: D36.10 Benign neoplasm of peripheral nerves and autonomic nervous system, unspecified (principal); L76.82 Other postprocedural complications of skin and subcutaneous tissue; I96 Gangrene, not elsewhere classified; R23.4 Changes in skin texture; G89.4 Chronic pain syndrome; M54.50 Low back pain, unspecified; R22.2 Localized swelling, mass and lump, trunk; E27.9 Disorder of adrenal gland, unspecified; I10 Essential (primary) hypertension; K21.9 Gastro-esophageal reflux disease without esophagitis; Z79.899 Other long term (current) drug therapy; Z91.040 Latex allergy status; Z91.041 Radiographic dye allergy status; Z98.890 Other specified postprocedural states; F17.210 Nicotine dependence, cigarettes, uncomplicated
CPT/HCPCS: 11042; 81025; 88304; J0690; J1100; J1630; J2250; J2405; J2704; J3010

== ENCOUNTER → 2025-03-06 09:01 | Outpatient (BNV) | payer OTHER, SELFPAY | PROVIDERS: PCP Nurse Practitioner Family; Visit Provider Surgery | DX: L98.8 Other specified disorders of the skin and subcutaneous tissue (principal) | CPT/HCPCS: 11042 ==

== ENCOUNTER 2025-03-13 14:01 | Outpatient (AMB) | payer OTHER, SELFPAY ==
--- NOTE | 2025-03-13 14:04 | A.OFFVIS_ITS ---
Vital Signs 3 03/13/25 14:11 Height 5 ft 8 in Weight 214 lb 15.211 oz BMI 32.7 BP 178/103 H Blood Pressure Location Lt brachial Position Sitting Pulse 77 Intake Visit Reasons: s/p wide excision skin lesion lft hip Intake Note: Patient is seen in office for post op assessment post wide excision of skin lesion of the left hip. Pt c/o: admits to increase pain, radiates up her back, unable to sleep at night due to pain pins and needles admits to discharge and redness Insurance Agency Manager Required: No Accompanied by: Self / Same As Patient Allergies latex Allergy (Mild, Verified 03/13/25 14:11) Itching povidone-iodine (From Betadine) Allergy (Mild, Verified 03/13/25 14:11) Blister HPI HPI s/p wide excision skin lesion lft hip: Details: Reporting pain radiating upper back from the incision site. Very nervous to lay in her bed as she does not want to disrupt the sutures. But has been uncomfortable trying to sleeping count. She denies fevers at home. Her sister has been helping with wound care states they have been putting triple antibiotic ointment and now Vaseline over the area to try and help this. States the packing has been left in but was following out yesterday so her sister pushed it back in and covered it with some Vaseline to help keep it there. [facility] Medical History Surgery, elective Pneumonia HTN (hypertension) GERD (gastroesophageal reflux disease) Surgical History Hx of surgical procedure (02/06/25) Hx of dilation and curettage Hx of tonsillectomy Hx of section Hx of bilateral inguinal hernia repair Social History Comment: counts correct Patient Tobacco Use Status: Current everyday Tobacco user Physical Exam Vital Signs: Last Vital Signs Pulse 77 03/13/25 14:11 BP 178/103 H 03/13/25 14:11 BMI result Body Mass Index 32.7 Const General: no acute distress and anxious Orientation/consciousness: patient oriented x3 Skin Other: Left gluteus: Superior incision Closed suture line appears intact clean, appears wet from Vaseline. inferior incision that was left open this is about 2 x 2 cm long, had packing still in place when removed large amount of serous fluid drained and then was subsequently milked out of this area. The area has 3 cm of tracking. There was no note of compromise of skin, no necrosis noted moderate amount of slough within the open aspect of the wound, see below Neuro General: patient oriented x3 Assessment & Plan Assessment & Plan (1) S/P excision of lipoma: Comment: Left posterior hip, 02/06/2025, Dr. Solitario Code(s): Z98.890 - Other specified postprocedural states; Z86.018 - Personal history of other benign neoplasm Category: Surgical Plan 44-year-old female s/p excision of a left posterior hip lipoma complicated by skin necrosis postoperatively now status post wider excision on 03/06/2025 returning to the office for follow up. Continues to struggle with pain control, states pain radiates from her glute upper back. She denies fevers at home. She states her sister has been helping with dressing changes daily, states that they have been putting triple antibiotic and Vaseline over this area although was previously not recommended to do so. Also states that the packing is still in place and was not removed, states that it was starting to come out so they pushed most of it back in and covered it with Vaseline to help it stay in. There has been clear yellow fluid draining from this. On exam the primary closure incision site is intact, does appear moist from Vaseline. We will leave the sutures in place for now. Just inferior there was an area that was left open during the procedure to facilitate drainage with packing in place. This area is about 2 x 2 cm in diameter. When removing packing a large amount of serous fluid was able to be drained from the area. I proceeded to drain as much of this fluid as possible but was slightly limited by pain. I probed this wound with a Q-tip which tracked about 3 cm deep. And allowed me to facilitate further drainage. There was no purulence noted however there was a moderate amount of slough in this wound. the overlying skin appears healthy, moist no areas of necrosis or erythema. This open wound was again packed with quarter- inch packing to facilitate further drainage buildup. I emphasized that She is to avoid creams or other topical medications in this area. We will send her a new prescription for oxycodone to help manage her pain at home. We will have her return this Tuesday for a wound check with our nurse Kyle. Would also like to set up VNA services for her as I am not confident that she is able to properly care for this wound and she also has difficulty to appointments as she relies on others for rides. she will Return to see me in one-week. She is to reach out to the emergency department prior if pain continues to worsen, she develops fevers or has any other concerns. Orders: Referrals 2 [facility] Referral Z86.018 - Personal history of other benign neoplasm, Z98.890 - Other specified postprocedural states Medications: New 2 oxycodone Partial Fill upon patient request. 5 mg PO Q6H PRN 5 tabs 0RF pain Coding Level of Care Code Est Pt Level 4 (79432) Diagnoses S/P excision of lipoma Z98.890; Z86.018
[2025-03-13 14:11] VITALS: BP 178/103; PULSE 77; BMI 32.7
== END 2025-03-13 14:58 | disposition home or self-care (01) ==
LOC: HO.HGS 14:01
PROVIDERS: PCP Nurse Practitioner Family
DX: Z98.890 Other specified postprocedural states (principal); Z86.018 Personal history of other benign neoplasm
CPT/HCPCS: 99214

== ENCOUNTER → 2025-03-13 14:01 | Outpatient (BNVA) | payer OTHER, SELFPAY | PROVIDERS: PCP Nurse Practitioner Family | DX: Z98.890 Other specified postprocedural states (principal); Z86.018 Personal history of other benign neoplasm | CPT/HCPCS: 99212 ==

== ENCOUNTER 2025-03-19 10:01 | Outpatient (AMB) | payer OTHER, SELFPAY ==
--- NOTE | 2025-03-19 10:38 | MHC.OFFVIS ---
Intake Visit Reasons: wound check Allergies latex Allergy (Mild, Verified 03/13/25 14:11) Itching povidone-iodine (From Betadine) Allergy (Mild, Verified 03/13/25 14:11) Blister HPI HPI wound check: Details: Doing okay, VNA coming 3x per week. Has been changing dressing each time they come, removing packing. Reports that output is decreasing. Pain is still present but decresing overall. Denies fevers or chills PFSH Medical History Surgery, elective Pneumonia HTN (hypertension) GERD (gastroesophageal reflux disease) Surgical History Hx of surgical procedure (02/06/25) Hx of dilation and curettage Hx of tonsillectomy Hx of section Hx of bilateral inguinal hernia repair Social History Comment: counts correct Patient Tobacco Use Status: Current everyday Tobacco user Physical Exam Const General: no acute distress and anxious Orientation/consciousness: patient oriented x3 Skin Other: Left gluteus: Superior incision Closed suture line appears intact clean. Inferior to primary closure there is a 2x2 cm open wound with 2 cm of tracking. SCant serous drainage. Moderate amounts of slough in the cavity. No necrosis, purulence Neuro General: patient oriented x3 Assessment & Plan Assessment & Plan (1) S/P excision of lipoma: Comment: Left posterior hip, 02/06/2025, Dr. Solitario Code(s): Z98.890 - Other specified postprocedural states; Z86.018 - Personal history of other benign neoplasm Category: Surgical Plan 44-year-old female s/p excision of a left posterior hip lipoma complicated by skin necrosis postoperatively now status post wider excision on 03/06/2025 returning to the office for follow up. Continues to struggle with pain control, states pain radiates from her glute upper back. Pain is overall improving since last visit. VNA now coming 3 times per week for wound care. On exam the primary closure incision site is intact, no concerns. We will leave the sutures in place for now. Just inferior there was an area that was left open during the procedure to facilitate drainage with packing in place. This area is about 2 x 2 cm in diameter. There was scant serous fluid and moderate amounts of slough withinthe cavity which no probed about 2 cm, so improved from last visit. There was no purulence noted, no surrounding cellulitis the overlying skin appears healthy, moist no areas of necrosis or erythema. This open wound was again packed with quarter-inch packing to facilitate further drainage buildup. I emphasized again that she is to avoid creams or other topical medications in this area. She will Return to see me in one-week. She is to reach out to the emergency department prior if pain continues to worsen, she develops fevers or has any other concerns. Coding Level of Care Code Est Pt Level 4 (77079) Diagnoses S/P excision of lipoma Z98.890; Z86.018
== END 2025-03-19 10:29 | disposition home or self-care (01) ==
LOC: HO.HGS 10:02
PROVIDERS: PCP Nurse Practitioner Family
DX: Z98.890 Other specified postprocedural states (principal); Z86.018 Personal history of other benign neoplasm
CPT/HCPCS: 99214

== ENCOUNTER → 2025-03-19 10:01 | Outpatient (BNVA) | payer OTHER, SELFPAY | PROVIDERS: PCP Nurse Practitioner Family; Visit Provider Surgery | DX: Z98.890 Other specified postprocedural states (principal); Z86.018 Personal history of other benign neoplasm | CPT/HCPCS: 99212 ==

== ENCOUNTER 2025-03-27 09:48 | Outpatient (AMB) | payer OTHER, SELFPAY ==
[2025-03-27 10:02] VITALS: BP 160/77; PULSE 64; BMI 32.2
--- NOTE | 2025-03-27 10:02 | A.OFFVIS_ITS ---
Vital Signs 03/27/25 10:02 Height 5 ft 8 in Weight 212 lb BMI 32.2 BP 160/77 H Blood Pressure Location Lt brachial Position Sitting Pulse 64 Intake Visit Reasons: wound check Intake Note: Patient is seen in office for one week follow up visit, wound check post excision lipoma of the left buttock. Pt c/o: continued discharge, would like to have stitches removed due to pain and pinching Engineering Group Leader Required: No Accompanied by: Family/Other Allergies latex Allergy (Mild, Verified 03/27/25 10:06) Itching povidone-iodine (From Betadine) Allergy (Mild, Verified 03/27/25 10:06) Blister HPI HPI wound check: Details: She reports she is dong okay, still experiencing a lot of pain. Was send new oxycodone script on tuesday continues to have high output from wound, clear yellow. Did have some blood last week when VNA changed dressing. They have been coming 3x per week. Denies fevers or chills. No malodor from wound. PENDING SALE TO [facility] Medical History Surgery, elective Pneumonia HTN (hypertension) GERD (gastroesophageal reflux disease) Surgical History Hx of surgical procedure (02/06/25) Hx of dilation and curettage Hx of tonsillectomy Hx of section Hx of bilateral inguinal hernia repair Social History Comment: counts correct Patient Tobacco Use Status: Current everyday Tobacco user Physical Exam Vital Signs: Last Vital Signs Pulse 64 03/27/25 10:02 BP 160/77 H 03/27/25 10:02 BMI result Body Mass Index 32.2 Const General: comfortable, no acute distress and anxious Orientation/consciousness: patient oriented x3 Resp Effort & Inspection: normal respiratory effort and able to speak in complete sentences Skin Other: Left gluteus: Superior incision Closed suture line appears intact, clean. Sutures remain in place, left lateral side removed in office. Inferior to primary closure there is a 2x2 cm open wound with 1.5 cm of tracking. There is mild amounts of slough in the superficial aspect of the wound. good granulation tissue on the wound base. SCant serous drainage, dressing appears saturated. No malodor. No palpable fluid collection Surrounding skin appears raw, irritated Neuro General: patient oriented x3 Assessment & Plan Assessment & Plan (1) S/P excision of lipoma: Comment: Left posterior hip, 02/06/2025, Dr. Solitario Code(s): Z98.890 - Other specified postprocedural states; Z86.018 - Personal history of other benign neoplasm Category: Surgical Plan 44-year-old female s/p excision of a left posterior hip lipoma complicated by skin necrosis postoperatively now status post wider excision on 03/06/2025 returning to the office for follow up. Continues to struggle with pain control, states pain radiates from her glute upper back and around the midsection. Was sent script for oxycodone area this week by Dr. Solitario. She appears more comfortable walking around and sitting. VNA now coming 3 times per week for wound care. They note continued high output from wound, clear yellow. No malodor. Continued packing. She did have an episode of bleeding, this is likely due to irritation during dressing changes with the formation of the new tissue deeper into the wound. On exam the primary closure incision site is int act, no concerns. I removed the left lateral side of sutures the wound appears intact still. Attempted to remove some from the right lateral side but there was some wound separation so left a few sutures, plan to remove next week. Just inferior the area that was left open appears to be improving, seems to be a bit smaller than last visit. There was scant serous fluid and mild amounts of slough within the cavity which no probed about 1.5 cm, which does look improved from last visit. The wound base appears to have good granulation tissue. There was no purulence noted, no surrounding cellulitis the overlying skin appears irritated but not infected. The skin is moist, likely due to a high output from the wound however there were no areas of necrosis or erythema. I recommended that she change dressings more frequently if she is noticing that they are saturated sooner than 24 hours. This open wound was again packed with quarter- inch packing to facilitate further drainage buildup. I emphasized again that she is to avoid creams or other topical medications in this area. She will Return to see me in one-week. She is to reach out to the emergency department prior if pain continues to worsen, she develops fevers or has any other concerns. Coding Level of Care Code Est Pt Level 4 (52412) Diagnoses S/P excision of lipoma Z98.890; Z86.018 Time Spent (min) 45
== END 2025-03-27 10:25 | disposition home or self-care (01) ==
PROVIDERS: PCP Nurse Practitioner Family
DX: Z98.890 Other specified postprocedural states (principal); Z86.018 Personal history of other benign neoplasm
CPT/HCPCS: 99214

== ENCOUNTER → 2025-03-27 09:48 | Outpatient (BNVA) | payer OTHER, SELFPAY | PROVIDERS: PCP Nurse Practitioner Family; Visit Provider Surgery | DX: D21.22 Benign neoplasm of connective and other soft tissue of left lower limb, including hip (principal); Z98.890 Other specified postprocedural states; Z86.018 Personal history of other benign neoplasm; Z48.02 Encounter for removal of sutures; Z48.01 Encounter for change or removal of surgical wound dressing; F17.210 Nicotine dependence, cigarettes, uncomplicated | CPT/HCPCS: 99212 ==

== ENCOUNTER 2025-04-03 12:22 | Outpatient (AMB) | payer OTHER, SELFPAY ==
--- NOTE | 2025-04-03 12:24 | MHC.OFFVIS ---
Vital Signs 04/03/25 12:29 Height 5 ft 8 in Weight 217 lb 4 oz BMI 33.0 Intake Visit Reasons: wound check Intake Note: Patient is seen in office for wound check, post excision of lipoma. Pt c/o: reports drainage. Special Shopper Required: No Accompanied by: Family/Other Allergies latex Allergy (Mild, Verified 04/03/25 12:32) Itching povidone-iodine (From Betadine) Allergy (Mild, Verified 04/03/25 12:32) Blister HPI HPI wound check: Details: Continues to have VNA, states wound requiring less packing. Continues to have serous drainage. Complaints of pain from skin deterioration surrounding wound. Additionally some pain radiating up her back [facility] Medical History Surgery, elective Pneumonia HTN (hypertension) GERD (gastroesophageal reflux disease) Surgical History Hx of surgical procedure (02/06/25) Hx of dilation and curettage Hx of tonsillectomy Hx of section Hx of bilateral inguinal hernia repair Social History Comment: counts correct Patient Tobacco Use Status: Current everyday Tobacco user Physical Exam Vital Signs: BMI result Body Mass Index 33.0 Const General: comfortable, no acute distress and anxious Orientation/consciousness: patient oriented x3 Resp Effort & Inspection: normal respiratory effort and able to speak in complete sentences Skin Other: Left gluteus: Superior incision Closed suture line appears intact, clean. A few Sutures remain in place, these were removed. Inferior to primary closure there is a 1.5 x 1.5 cm open wound with 1.5 cm of tracking deep at the 11 o'clock position, 2 cm tracking at the 9 o'clock position. There is scant amounts of slough in the superficial aspect of the wound. good granulation tissue on the wound base. SCant serous drainage, dressing appears saturated. No malodor. No palpable fluid collection Surrounding skin appears raw, irritated but improved from last visit Neuro General: patient oriented x3 Assessment & Plan Assessment & Plan (1) S/P excision of lipoma: Comment: Left posterior hip, 02/06/2025, Dr. Solitario Code(s): Z98.890 - Other specified postprocedural states; Z86.018 - Personal history of other benign neoplasm Category: Surgical Plan 44-year-old female s/p excision of a left posterior hip lipoma complicated by skin necrosis postoperatively now status post wider excision on 03/06/2025 returning to the office for follow up. Continues to Complain of pain, states pain radiates from her glute upper back and around the midsection. this appears to be improving. And much of this is likely secondary to skin irritation from dressings in serous drainage. She appears more comfortable walking around and sitting. VNA now coming 3 times per week for wound care. They note continued Serous output from wound, clear yellow. No malodor. Continued packing, noting that packing has becoming less. On exam the primary closure incision site is intact, no concerns. I removed the Remaining sutures the wound appears intact, healing well. Just inferior the area that was left open appears to be improving, seems to be a bit smaller than last visit. There was scant serous fluid and scant amounts of slough within the cavity which no probed about 1.5 cm at the 11 o'clock position, there remains 2 cm of tracking at the 9 o'clock position, which does look improved from last visit. The wound base appears to have good granulation tissue. overall the size of the wound is decreasing. There was no purulence noted, no surrounding cellulitis the overlying skin appears irritated but not infected. it does appear improved from last visit. The skin is moist, likely due to a high output from the wound however there were no areas of necrosis or erythema. I continued to recommend that she change dressings more frequently if she is noticing that they are saturated sooner than 24 hours. This open wound was again packed with quarter-inch packing to facilitate further drainage buildup. the amount of packing used his decreasing from visit to visit. I emphasized again that she is to avoid creams or other topical medications in this area. She can use some creams to help with some of the skin irritation advised her to keep a wide buffer between where she is applying creams in the wound. She is agreeable to this She will Return to see me in 2 weeks. can continue with VNA 3 times per week. She is to reach out to the emergency department prior if pain continues to worsen, she develops fevers or has any other concerns. Coding Level of Care Code Est Pt Level 4 (19609) Diagnoses S/P excision of lipoma Z98.890; Z86.018 Time Spent (min) 40
[2025-04-03 12:29] VITALS: BMI 33.0
== END 2025-04-03 13:07 | disposition home or self-care (01) ==
LOC: HO.HGS 12:22
PROVIDERS: PCP Nurse Practitioner Family
DX: Z98.890 Other specified postprocedural states (principal); Z86.018 Personal history of other benign neoplasm
CPT/HCPCS: 99214

== ENCOUNTER → 2025-04-03 12:22 | Outpatient (BNVA) | payer OTHER, SELFPAY | PROVIDERS: PCP Nurse Practitioner Family | DX: Z48.817 Encounter for surgical aftercare following surgery on the skin and subcutaneous tissue (principal); Z98.890 Other specified postprocedural states; Z86.018 Personal history of other benign neoplasm | CPT/HCPCS: 99212 ==